=== PATIENT | male | born 1970 | race Caucasian/White ===

== ENCOUNTER 2016-07-31 10:02 | Emergency (ER) | payer OTHER ==
--- NOTE | 2016-08-05 15:21 | ER ---
ADMIT: 07/31/2016 RM/LOC: ER [facility] MR#: [id number] [facility] [address] [place], [place] [id number] ICELANDICSHERINE [address] [place] [address] Emergency Room Report SEX: M AGE: 46 : 1970 DATE: 07/31/2016 CHIEF COMPLAINT: Left-sided abrasion and pain. Apparently he was at work today and slid off a ladder about 10 feet, tried to grab the side of the ladder and he sustained an abrasion in the left axilla. It is almost like midchest to mid medial biceps. He has no difficulty breathing or speaking. No problems taking deep breath but because he works for the formerly [employer] or the [employer], he was asked to come and get checked. He does have a nice abrasion in the internal aspect of his left axilla. He does say that he is feeling a slight tingling sensation in his fingers. PAST MEDICAL HISTORY: Seasonal allergies. MEDICATIONS: Takes Fauzia. ALLERGIES: HE IS ALLERGIC TO SULFA. PHYSICAL EXAMINATION: No neurological issues found. Extremities are well perfused. Oriented x4. Mood and affect appropriate. Speech is patent SKIN: Abrasion, left axilla. IMAGING: X-ray of the ribs did not show any fracture. Instructions given for care. CLINICAL IMPRESSION: Large abrasion, left axilla; left upper chest contusion and strain. Released with instructions. Follow up with primary provider. Given Dr. Stone for followup. MELISSA Black / Rusty Red MD / [place] JOB #: [id number] CC: Rusty Red MD, Attending Physician UNKNOWN, Family Physician
== END 2016-07-31 11:55 | disposition home or self-care (01) ==
LOC: ER 10:02
DX: S29.012A Strain of muscle and tendon of back wall of thorax, initial encounter (principal); S20.212A Contusion of left front wall of thorax, initial encounter; S40.812A Abrasion of left upper arm, initial encounter; J30.2 Other seasonal allergic rhinitis; Z88.2 Allergy status to sulfonamides; Z79.899 Other long term (current) drug therapy; W11.XXXA Fall on and from ladder, initial encounter; Y92.69 Other specified industrial and construction area as the place of occurrence of the external cause